=== PATIENT | female | born 1950 | race Caucasian/White ===

== ENCOUNTER 2018-04-15 16:19 | Inpatient (IN) | payer OTHER, MEDICARE ==
[~2018-04-15] VITALS: Ht 165.1 cm; Wt 88.9 kg
[~2018-04-15 16:19] MED LIST: ENAL10TA75 PO; PHEN16.22 PO; [UNRECOGNIZED DRUG - CODE] PO
--- NOTE | 2018-04-15 16:32 | NUR ---
[id number], FROM HOME GLF, SLIPPED ON THE STAIRS, L ANKLE PAIN, -KO. AAOX4, VSS. SPEAKING W/ [place] LANGUAGE, FAMILY @ BS ASSISTING W/ TRANSLATION. DENIES CP, SOB, DIZZINESS, RODRIGUEZ, WEAKNESS. PT SEEN & EVAL'D BY DR. MALONE. WILL CONT TO MONITOR.
--- NOTE | 2018-04-15 17:14 | NUR ---
CALLED [facility] [phone] AFTER HOURS [phone] PHYSICIAN RELATIONS MANAGER MAURICIO EMERY WILL BE PAGED.
--- NOTE | 2018-04-15 18:03 | NUR ---
CALLED [facility] [phone] PAGED
--- NOTE | 2018-04-15 19:10 | NUR ---
AUSTIN LEMUS APPLIED LT SHORT LEG POSTERIOR SPLINT, PT BELEM WELL WITH GOOD CMS.
[2018-04-15] MEDS ORDERED: NEBI10TA2 PO (19:15)
[2018-04-15] MEDS ORDERED: LOSA50TA39 PO (19:15)
[2018-04-15] MEDS ORDERED: CLON0.1T PO (19:16)
[2018-04-15 19:19] LABS: BASOPHILS # (AUTO) 0.1 /CMM (0.0-0.2); BASOPHILS % (AUTO) 0.5 % (0.0-2.0); EOSINOPHILS % (AUTO) 0.5 % (0.0-6.0); HEMATOCRIT 35 % (33-45); HEMOGLOBIN 11.6 g/dL (11.5-14.8); LYMPHOCYTES # (AUTO) 1.7 /CMM (0.8-4.8); LYMPHOCYTES % (AUTO) 14.7 % (20.0-44.0); MEAN CORPUSCULAR HGB CONC 33 g/dl (31.0-36.0); MEAN CORPUSCULAR VOLUME 77 fL (82-100); MONOCYTES # (AUTO) 0.5 /CMM (0.1-1.30); MONOCYTES % (AUTO) 4.7 % (2.0-12.0); NEUTROPHILS % (AUTO) 79.6 % (43.0-81.0); PLATELET COUNT (AUTO) 263 /CMM (150-450); RED BLOOD CELL COUNT(AUTO) 4.59 MIL/uL (4.0-5.2); WHITE BLOOD COUNT (AUTO) 11.3 K/uL (4.3-11.0)
[2018-04-15] MEDS ORDERED: CLONIDINE HCL 0.1 MG TABLET PO PRN (19:30)
[2018-04-15 19:39] LABS: CALCIUM, SERUM 9.7 mg/dL (8.5-10.1); CREATININE 1.4 mg/dL (0.6-1.3); POTASSIUM 3.2 mmol/L (3.5-5.1)
--- NOTE | 2018-04-15 19:57 | NUR ---
REPORT GIVEN TO TERRY BAINS.
[2018-04-15 20:00] VITALS: BP 156/63
[2018-04-15] MEDS ORDERED: ACETAMINOPHEN 325 MG TABLET PO PRN (20:00)
[2018-04-15] MEDS ORDERED: MAG HYDROX/AL HYDROX/SIMETH 30 ML UDC PO PRN (20:00)
[2018-04-15] MEDS ORDERED: ZOLPIDEM TARTRATE 5 MG TABLET PO PRN (20:00)
[2018-04-15] MEDS ORDERED: HYDROCODONE/APAP 5/325MG 1 EACH TABLET PO PRN (20:00)
[2018-04-15] MEDS ORDERED: ONDANSETRON HCL/PF 4 MG/2 ML VIAL IVP PRN (20:00)
[2018-04-15] MEDS ORDERED: MAGNESIUM HYDROXIDE 30 ML UDC PO PRN (20:00)
[2018-04-15] MEDS ORDERED: Z GUARD REMEDY 2 OZ OINT TP PRN (20:00)
[2018-04-15] MEDS ORDERED: HYDROMORPHONE INJ 2 MG/ML DISP.SYRIN IV PRN (20:00)
[2018-04-15 20:10] VITALS: BP 156/63
--- NOTE | 2018-04-15 20:10 | NUR ---
RECEIVED PATIENT FROM ER FOR DX LEFT DISTAL FIBULA FRACTURE. AO X 3, ABLE TO MAKE NEEDS KNOWN. NO ACUTE DISTRESS NOTED. PER PATIENT, SHE HAS NO PAIN IF LEFT FOOT IS NOT DISTURBED. IV SITE PATENT, INTACT; FLUSHED. LEFT LOWER EXTREMITY IN SPLINT. SKIN ASSESSMENT DONE. SAFETY REMINDERS GIVEN. ORIENTATION TO ROOM AND UNIT GIVE TO PATIENT. SON AT BEDSIDE FOR TRANSLATION. ON LOW BED WITH BILATERAL UPPER SIDE RAILS UP. CALL MANUEL WITHIN EASY REACH. WILL CONTINUE TO MONITOR.
[2018-04-15] MEDS ORDERED: POTASSIUM CHLORIDE 20 MEQ TAB.PRT.SR PO ONE (20:30)
--- NOTE | 2018-04-15 22:00 | NUR ---
SEEN BY DR. KEY. LEFT FOOT ELEVATED ABOVE THE HEART.
[2018-04-15] MEDS: IV NS 0.9% 1,000 ML IV PRN (22:51)
[2018-04-16 07:00] LABS: ALBUMIN 3.3 g/dL (3.4-5.0); BILIRUBIN,TOTAL 0.4 mg/dL (0.2-1.0); CREATININE 1.3 mg/dL (0.6-1.3); MAGNESIUM 2.2 mg/dL (1.8-2.4); PHOSPHORUS 3.5 mg/dL (2.5-4.9); POTASSIUM 3.5 mmol/L (3.5-5.1); TOTAL PROTEIN, SERUM 6.7 g/dL (6.4-8.2)
--- NOTE | 2018-04-16 07:00 | NUR ---
PATIENT AWAKE. RESPIRATIONS EVEN. NO SIGNS OF PAIN NOTED. IVF INFUSING ORDERED. LEFT LEG ELEVATED. SON AT BEDSIDE. SAFETY PRECAUTIONS AND COMFORT MEASURES IN PLACE. WILL GIVE REPORT TO DAY SHIFT FOR CONTINUITY OF CARE.
[2018-04-16 07:02] LABS: BASOPHILS # (AUTO) 0.1 /CMM (0.0-0.2); BASOPHILS % (AUTO) 0.7 % (0.0-2.0); EOSINOPHILS % (AUTO) 0.5 % (0.0-6.0); HEMATOCRIT 32 % (33-45); HEMOGLOBIN 10.7 g/dL (11.5-14.8); LYMPHOCYTES # (AUTO) 1.7 /CMM (0.8-4.8); LYMPHOCYTES % (AUTO) 20.8 % (20.0-44.0); MEAN CORPUSCULAR HGB CONC 33 g/dl (31.0-36.0); MEAN CORPUSCULAR VOLUME 76 fL (82-100); MONOCYTES # (AUTO) 0.6 /CMM (0.1-1.30); MONOCYTES % (AUTO) 6.7 % (2.0-12.0); NEUTROPHILS % (AUTO) 71.3 % (43.0-81.0); PLATELET COUNT (AUTO) 220 /CMM (150-450); RED BLOOD CELL COUNT(AUTO) 4.25 MIL/uL (4.0-5.2); WHITE BLOOD COUNT (AUTO) 8.4 K/uL (4.3-11.0)
--- NOTE | 2018-04-16 07:23 | NUR ---
MS RN OPENING NOTE RECEIVED PATIENT IN BED. ALERT ORIENTED X4. ON ROOM AIR TOLERATING WELL. IN NO APPARENT DISTRESS OR DISCOMFORT AT THIS TIME. RESPIRATIONS EVEN AND UNLABORED. HUSSEIN PAIN AND SOB AT THIS TIME. PATIENT IS ABLE TO COMMUNICATE NEEDS. LEFT EXTREMITY ELEVATED ON BLANKETS PER MD ORDER. LEFT AC 20G IVC WITH FLUIDS RUNNING AT 75ML/HR, PATIENT ON NPO STATUS. KEPT CLEAN AND COMFORTABLE. ALL NEEDS ATTENDED, SAFETY MEASURES IN PLACE, BED IN LOW LOCKED POSITION, SIDE RAILS UP X2, CALL LIGHT WITHIN EASY REACH. WILL CONTINUE TO MONITOR.
[2018-04-16 08:00] VITALS: BP 156/76
[2018-04-16 08:40] LABS: THYROID STIMULATING HORMONE 1.286 uIU/mL (0.358-3.74)
[2018-04-16] MEDS: POTASSIUM CHLORIDE 20 MEQ TAB.PRT.SR PO SCH ×2 (08:55→10:46)
[2018-04-16] MEDS: PANTOPRAZOLE 40 MG VIAL IV SCH (08:56)
[2018-04-16] MEDS: LOSARTAN POTASSIUM 50 MG TABLET PO SCH (08:56)
[2018-04-16] MEDS: ENALAPRIL MALEATE (10 MG) 10 MG TABLET PO SCH (08:57)
--- NOTE | 2018-04-16 11:00 | NUR ---
PER DR. KEY PATIENT WILL HAVE SX TOMORROW. OK TO FEED TODAY. NPO POST MIDNIGHT. NOTED AND CARRIED OUT.
--- NOTE | 2018-04-16 12:00 | NUR ---
PATIENT REFUSES TO USE BEDPAN. INSISTS ON USING THE BATHROOM WITH ASSISTANCE OF THE WALKER. REPORTED TO DR. GHOTRA. WILL MONITOR FOR SAFETY.
[2018-04-16] MEDS: FERROUS SULFATE (325 MG) 325 MG/TAB TABLET PO SCH ×2 (13:47→18:17)
[2018-04-16 16:00] VITALS: BP 147/74
--- NOTE | 2018-04-16 16:31 | NUR ---
NAEL PATTON REPORTED THAT PATIENT REFUSED BED BATH AND HYGIENE CARE. SPOKE TO THE PATIENT, WHO STATED HER DAUGHTER HELPED HER CLEAN UP EARLIER AND SHE DOES NOT WANT TO BE MOVED AROUND AT THIS TIME AND SHE DOES NOT NEED HELP. WILL FOLLOW UP AT A LATER TIME.
--- NOTE | 2018-04-16 18:50 | NUR ---
PATIENT'S HOOM EMEDICATION BYSTOLIC WAS OBTAINED FROM FAMILY AND GIVEN TO PHARMACY AT THIS TIME.
--- NOTE | 2018-04-16 19:30 | NUR ---
RECEIVED PATIENT IN BED AWAKE. AO X 3, ABLE TO MAKE NEEDS KNOWN. NO ACUTE DISTRESS NOTED. NO C/O PAIN. LLE ELEVATED. IV SITE PATENT, INTACT; FLUSHED. SAFETY REMINDERS GIVEN. ON LOW BED WITH BILATERAL UPPER SIDE RAILS UP. CALL MANUEL WITHIN EASY REACH. WILL CONTINUE TO MONITOR.
--- NOTE | 2018-04-16 19:34 | NUR ---
MS RN CLOSING NOTE PATIENT IN BED. ALERT ORIENTED X4. ON ROOM AIR TOLERATING WELL. IN NO APPARENT DISTRESS OR DISCOMFORT AT THIS TIME. RESPIRATIONS EVEN AND UNLABORED. HUSSEIN PAIN AND SOB AT THIS TIME. PATIENT IS ABLE TO COMMUNICATE NEEDS. LEFT EXTREMITY ELEVATED ON BLANKETS PER MD ORDER. LEFT AC 20G IVC WITH FLUIDS RUNNING AT 75ML/HR. KEPT CLEAN AND COMFORTABLE. ALL NEEDS ATTENDED, SAFETY MEASURES IN PLACE, BED IN LOW LOCKED POSITION, SIDE RAILS UP X2, CALL LIGHT WITHIN EASY REACH. WILL ENDORSE TO PM NURSE FOR RENÉ.
[2018-04-16 20:00] VITALS: BP 144/69
[2018-04-16] MEDS: IV NS 0.9% 1,000 ML IV PRN (22:54)
[2018-04-17] VITALS (8 sets, daily range): BP systolic 138–156; BP diastolic 67–82
[2018-04-17 06:31] LABS: BASOPHILS % (AUTO) 0.6 % (0.0-2.0); EOSINOPHILS % (AUTO) 1.3 % (0.0-6.0); HEMATOCRIT 31 % (33-45); HEMOGLOBIN 10.5 g/dL (11.5-14.8); LYMPHOCYTES % (AUTO) 26.9 % (20.0-44.0); MEAN CORPUSCULAR HGB CONC 34 g/dl (31.0-36.0); MEAN CORPUSCULAR VOLUME 76 fL (82-100); MONOCYTES # (AUTO) 0.6 /CMM (0.1-1.30); MONOCYTES % (AUTO) 8.6 % (2.0-12.0); NEUTROPHILS # (AUTO) 4.7 /CMM (1.8-8.9); NEUTROPHILS % (AUTO) 62.6 % (43.0-81.0); PLATELET COUNT (AUTO) 200 /CMM (150-450); RED BLOOD CELL COUNT(AUTO) 4.13 MIL/uL (4.0-5.2); WHITE BLOOD COUNT (AUTO) 7.5 K/uL (4.3-11.0)
--- NOTE | 2018-04-17 06:45 | NUR ---
PATIENT ASLEEP, EASILY AROUSABLE. RESPIRATIONS EVEN. NO SIGNS OF PAIN NOTED. KEPT NPO PAST MIDNIGHT. IVF INFUSING ORDERED. NEEDS ATTENDED. LLE ELEVATED ABOVE HEART ORDERED. SAFETY PRECAUTIONS AND COMFORT MEASURES IN PLACE. WILL GIVE REPORT TO DAY SHIFT FOR CONTINUITY OF CARE.
[2018-04-17 06:49] LABS: ALBUMIN 3.2 g/dL (3.4-5.0); BILIRUBIN,TOTAL 0.6 mg/dL (0.2-1.0); CALCIUM, SERUM 8.8 mg/dL (8.5-10.1); CREATININE 1.3 mg/dL (0.6-1.3); MAGNESIUM 2.1 mg/dL (1.8-2.4); PHOSPHORUS 3.6 mg/dL (2.5-4.9); POTASSIUM 3.8 mmol/L (3.5-5.1); TOTAL PROTEIN, SERUM 6.8 g/dL (6.4-8.2)
--- NOTE | 2018-04-17 08:00 | NUR ---
MS RN NOTES PATIENT IN BED RESTING WITH FAMILY AT BEDSIDE. STATES SHE IS COMFORTABLE. PATIENT ALERT, ORIENTED 3 [place] SPEAKING. BED IN LOW LOCKED POSITION. CALL LIGHT WITHIN REACH. PATIENT NPO WAITING FOR ORIF OF THE ANKLE.
[2018-04-17] MEDS: LOSARTAN POTASSIUM 50 MG TABLET PO SCH (09:00)
[2018-04-17] MEDS: FERROUS SULFATE (325 MG) 325 MG/TAB TABLET PO SCH (09:00)
[2018-04-17] MEDS: ENALAPRIL MALEATE (10 MG) 10 MG TABLET PO SCH (09:00)
[2018-04-17] MEDS: PANTOPRAZOLE 40 MG VIAL IV SCH (09:28)
[2018-04-17] MEDS ORDERED: FENTANYL PF 250MCG/5ML AMPUL ONE (12:30)
[2018-04-17] MEDS ORDERED: MIDAZOLAM HCL 2 MG/2ML VIAL ONE (12:30)
[2018-04-17] MEDS ORDERED: ROCURONIUM BROMIDE 50 MG/5 ML ONE (12:31)
[2018-04-17] MEDS ORDERED: BACITRACIN 50000 UNITS/VIAL ONE (13:03)
[2018-04-17] MEDS ORDERED: SOD FERRIC GLUC 125 MG in IV NS 0.9% 100 ML IV SCH (14:00)
[2018-04-17] MEDS ORDERED: BUPIVACAINE 0.5 % PF 150 MG/30 ML VIAL ONE (17:26)
[2018-04-17] MEDS: IV NS 0.9% 1,000 ML IV PRN (18:32)
--- NOTE | 2018-04-17 19:06 | NUR ---
MS RN NOTES PATIENT IN BED S/P ORIF ALERT, ORIENTED X3 WITH FAMILY AT BEDSIDE. DENIES PAIN OR DISCOMFORT. ALL DUE MEDICATIONS ADMINISTERED. ALL NEEDS MET. ENDORSED CARE TO PM SHIFT.
--- NOTE | 2018-04-17 19:30 | NUR ---
MS RN NOTE: PATIENT RESTING IN BED, NO ACUTE DISTRESS NOTED. BREATHING EVEN AND UNLABORED, NO SOB NOTED. IV TO LAC IN PLACE, INFUSING NS AT 75ML/HR. BED LOCKED AND IN LOWEST POSITION, CALL LIGHT IN REACH. WILL CONTINUE TO MONITOR.
[2018-04-17] MEDS: ANCEF 1 GM/50 ML D5W IV SCH ×2 (20:36)
--- NOTE | 2018-04-18 03:30 | NUR ---
MS RN NOTE: PATIENT SLEEPING IN BED, NO ACUTE DISTRESS NOTED. BREATHING EVEN AND UNLABORED, NO SOB NOTED. BED LOCKED AND IN LOWEST POSITION, CALL LIGHT IN REACH. WILL CONTINUE TO MONITOR.
[2018-04-18] MEDS: ANCEF 1 GM/50 ML D5W IV SCH ×2 (04:04)
--- NOTE | 2018-04-18 06:05 | NUR ---
MS RN NOTE: PATIENT RESTING IN BED, NO ACUTE DISTRESS NOTED. BREATHING EVEN AND UNLABORED, NO SOB NOTED. IV TO LAC IN PLACE, INFUSING NS AT 75ML/HR. BED LOCKED AND IN LOWEST POSITION, CALL LIGHT IN REACH. WILL ENDORSE TO DAY NURSE TO CONTINUE WITH PLAN OF CARE.
[2018-04-18 06:47] LABS: BASOPHILS % (AUTO) 0.4 % (0.0-2.0); EOSINOPHILS % (AUTO) 0.3 % (0.0-6.0); HEMATOCRIT 31 % (33-45); HEMOGLOBIN 10.1 g/dL (11.5-14.8); LYMPHOCYTES # (AUTO) 1.5 /CMM (0.8-4.8); LYMPHOCYTES % (AUTO) 16.3 % (20.0-44.0); MEAN CORPUSCULAR HGB CONC 33 g/dl (31.0-36.0); MEAN CORPUSCULAR VOLUME 77 fL (82-100); MONOCYTES # (AUTO) 0.7 /CMM (0.1-1.30); MONOCYTES % (AUTO) 7.9 % (2.0-12.0); NEUTROPHILS % (AUTO) 75.1 % (43.0-81.0); PLATELET COUNT (AUTO) 213 /CMM (150-450); WHITE BLOOD COUNT (AUTO) 9.3 K/uL (4.3-11.0)
[2018-04-18 07:12] LABS: CALCIUM, SERUM 8.4 mg/dL (8.5-10.1); CREATININE 1.4 mg/dL (0.6-1.3); MAGNESIUM 2.1 mg/dL (1.8-2.4); PHOSPHORUS 3.6 mg/dL (2.5-4.9); POTASSIUM 3.5 mmol/L (3.5-5.1)
--- NOTE | 2018-04-18 07:39 | NUR ---
MS/RN OPENING NOTE PATIENT IN BED IN STABLE CONDITION. A/O X 3, [place] SPEAKING. NO SIGNS OF ACUTE DISTRESS. NO COMPLAIN OF PAIN OR DISCOMFORT. ALL NEEDS ATTENDED TO. CALL LIGHT WITHIN REACH. WILL CONTINUE TO MONITOR TO ENSURE SAFETY.
[2018-04-18 08:00] VITALS: BP 142/69
[2018-04-18 08:05] VITALS: BP 142/69
[2018-04-18] MEDS: PANTOPRAZOLE 40 MG VIAL IV SCH (08:05)
[2018-04-18] MEDS: LOSARTAN POTASSIUM 50 MG TABLET PO SCH (08:05)
[2018-04-18] MEDS: ENALAPRIL MALEATE (10 MG) 10 MG TABLET PO SCH (08:05)
--- NOTE | 2018-04-18 11:28 | NUR ---
MS/RN SEEN BY [facility] RUPERT IRIZARRY WITH ORDERS TO START LOVENOX 4OMG SQ DAILY X [address] KEY. ALSO PATIENT CLEAR FOR DISCHARGE FROM [facility]. DR GHOTRA HOSPITALIST AWARE.
[2018-04-18] MEDS ORDERED: ENOXAPARIN SODIUM 40 MG/0.4 ML DISP.SYRIN SQ SCH ×2 (11:30→11:58)
[2018-04-18] MEDS ORDERED: ACET325T53 PO (12:25)
[2018-04-18] MEDS ORDERED: PANT40TA2 PO (12:25)
[2018-04-18] MEDS ORDERED: FERR325T23 PO (12:25)
[2018-04-18] MEDS ORDERED: ENOX40DI SQ (12:25)
--- NOTE | 2018-04-18 14:27 | NUR ---
MS/AGRONOMY SPECIALIST PATIENT DISCHARGE HOME IN STABLE CONDITION. A/O X 4. [place] SPEAKING. NO SIGNS OF ACUTE DISTRESS. NO COMPLAIN OF PAIN OR DISCOMFORT. DISCHARGE EDUCATIONS AND TEACHINGS PROVIDED TO THE CAREGIVER, MADE AWARE NWB TO LEFT FOOT. VERBALIZED UNDERSTANDING. MADE AWARE TO FOLLOW UP WITH DR YESI ALLEN WITHIN 1-2 WEEKS, OFFICE NUMBER PROVIDED . VERBALIZED UNDERSTANDING. NAME BAND AND IV LINE REMOVED. ALL NEEDS ATTENDED TO. LEFT VIA PRIVATE CAR IN STABLE CONDITION ACCOMPANIED BY DAUGHTER AND GRANDSON.
== END 2018-04-18 14:30 | disposition home health service (06) | DRG 313 ==
LOC: ER 16:22 → MEDSG2 19:57
PROVIDERS: ADMIT Nurse Practitioner Acute Care; ATTEND Student in an Organized Health Care Education/Training Program
PROC: 0QSKXZZ Reposition Left Fibula, External Approach (ICD-10-PCS; principal; 2018-04-16)
PROC: 0SSG04Z Reposition Left Ankle Joint with Internal Fixation Device, Open Approach (ICD-10-PCS; 2018-04-17)
DX: S82.892A Other fracture of left lower leg, initial encounter for closed fracture (principal); N17.0 Acute kidney failure with tubular necrosis; D68.59 Other primary thrombophilia; E44.1 Mild protein-calorie malnutrition; E88.09 Other disorders of plasma-protein metabolism, not elsewhere classified; D72.829 Elevated white blood cell count, unspecified; E87.6 Hypokalemia; R73.9 Hyperglycemia, unspecified; D50.9 Iron deficiency anemia, unspecified; W01.0XXA Fall on same level from slipping, tripping and stumbling without subsequent striking against object, initial encounter; Y93.9 Activity, unspecified; Y92.009 Unspecified place in unspecified non-institutional (private) residence as the place of occurrence of the external cause; I10 Essential (primary) hypertension; Z90.5 Acquired absence of kidney; Z68.32 Body mass index [BMI] 32.0-32.9, adult
CPT/HCPCS: 36415; 71045-TC; 73600-TC; 73610-TC; 73700-TC; 80048-TC; 80053-TC; 80061-TC; 82728-TC; 83540-TC; 83735-TC; 84100-TC; 84439-TC; 84443-TC; 85025-TC; 85730-TC; 86850-TC; 87081-TC; 93307-TC; A6402; A6403; C9113; G0378; J0690; J2250; J2405; J2704; J2916; J3010; J3490; J7030; J7060